=== PATIENT | female | born 1955 | race Caucasian/White ===

== ENCOUNTER → 2023-07-08 13:29 | Outpatient (REF) | payer MEDICARE, OTHER, SELFPAY | LOC: HWRAD 13:29 | PROVIDERS: ATTENDING PHYSICIAN Internal Medicine; FAMILY PHYSICIAN Family Medicine | DX: R91.1 Solitary pulmonary nodule (principal) | CPT/HCPCS: 71250 ==

== ENCOUNTER 2023-07-20 21:57 | Emergency (ER) | payer MEDICARE, OTHER, SELFPAY ==
[2023-07-20 21:57] VITALS: BMI 25.7
[2023-07-20 22:04] VITALS: BP 168/97
--- NOTE | 2023-07-20 22:27 | ED.GENMED ---
History of Present Illness
General
Chief Complaint: Fainting/Passed Out
Source: patient and family
Time Seen by Provider: 07/20/23 22:12
Nursing documentation reviewed up to this point in time: agreed with
Travel History
Have you had any contact with someone who has COVID-19?: No
Do you have any symptoms of coronavirus? Fever > 100 degrees, chills, cough, shortness of breath, sore throat, loss of taste or smell, muscle aches, or headache?: No
History of Present Illness
History of Present Illness:
This a pleasant 67-year-old female that presents with syncopal event. She was sitting down watching television when she got up and passed out. She denies prior chest pain or dizziness. She states that when she fell she hit her face. She
developed epistaxis which seemed to have resolved. She does have bruising under her left eye. She denies any visual acuity changes. She does report mild headache.
Vital signs are stable. Patient not hypoxic
Nursing note reviewed. I agree with nursing documentation up to this point in time.
Home Meds and allergies reviewed.
NUMBER AND COMPLEXITY OF PROBLEMS ADDRESSED AT THE ENCOUNTER
� Chronic conditions affecting care: Hypertension
� Acute Exacerbation and/or Progression of Chronic Illness:
� Differential Diagnosis includes: Vasovagal syncope, orthostasis, dehydration
AMOUNT AND/OR COMPLEXITY OF DATA TO BE REVIEWED AND ANALYZED
I performed an independent evaluation of the following and my interpretation is:
EKG: EKG shows normal sinus rhythm rate of 77 with normal intervals, normal axis. No evidence of acute ischemia present. When compared with previous EKG dated July 31, 2021, similar morphology noted.
CT:
X-rays:
Ultrasound:
Laboratory Studies:
Other:
Review of other/old records:
Clinical information was obtained by an independent historian:
Prescriptions/Medications Considered but not given:
Further testing considered but not performed:
RISK OF COMPLICATIONS AND/OR MORBIDITY OR MORTALITY OF PATIENT MANAGEMENT
Social determinants of health affecting care: Good Social Support
Discussion with other providers:
Escalation of care including admission/observation vs risk of discharge considered:
CRITICAL CARE NOTE:
Total Time (exclusive of procedures):
Update:
Past History
Past History
ED Past Medical History: Other (Migraine headache)
ED Past Surgical History: Orthopedic
Social History
Tobacco: Non-smoker
Alcohol: Other
Drug: None
Personal:
Living: with family
Employment: Retired
Family History
Family History: Other
Review of Systems
Review of Systems
Allergies reviewed?: Yes
Other source history: family
All Other Systems: ROS reviewed and negative except as documented in HPI and ROS
Constitutional: Reports no symptoms
EENT: Reports no symptoms
Respiratory: Reports no symptoms
Cardiac: Reports no symptoms
ABD/GI: Reports no symptoms
: Reports no symptoms
Musculoskeletal: Reports no symptoms
Skin: Reports no symptoms
Neurological: Reports headache; Denies dizzy
Endocrine: Reports no symptoms
Hematologic/Lymphatic: Reports no symptoms
Psychiatric: Reports anxiety
Phy Exam
General Physical Exam
General Presentation: well appearing and mild distress
General age: appears stated age
General Skin: warm and dry
General Habitus: normal
General Mental: alert and anxious
ENT Exam
ENT Exam: EOMI, TM's normal, neck supple and normocephalic
Eye Exam
Eye Exam: PERRL, EOMI and disc sharp
Course
Orders/Labs/Results
Orders:
Orders
07/20/23 22:14
Electrocardiogram (*1) Stat
Reason for Study: Other
Other Reason for Exam: chest pain
Cardiac Monitoring- Treatment ONCE
EKG- Treatment ONCE
07/20/23 22:26
CT Head W/o Iv Contrast Urgent
Comment:
Reason For Exam: syncope , facial injury
07/20/23 22:27
CT Facial Bones W/o Iv Contras Urgent
Comment:
Reason For Exam: syncope , facial injury left eye
07/20/23 22:34
Visual Acuity- Treatment ONCE
07/20/23 23:01
Complete Blood Count/With Diff Urgent
Comprehensive Metabolic Panel Urgent
Magnesium Urgent
PTT Urgent
Prothrombin Time Urgent
TSH Urgent
Troponin I Urgent
07/20/23 23:04
Acetaminophen [Tylenol] 1,000 mg PO NOW STA
07/21/23 00:50
Ambulate Patient-Treatment ONCE
Orthostatic VS- Treatment ONCE
07/21/23 01:33
Amoxicillin 875 mg/Clav 125 mg [Augmentin 875 mg/125 mg] 1 tablet PO NOW STA
Abnormal Lab Results
07/20/23
23:01
Abs Immat Gran (auto) 0.1 H 10^3/uL
(0-0.05)
Absolute Neuts (auto) 8.2 H 10^3/uL
(1.4-6.5)
Neutrophils % 80.0 H %
(42.2-75.2)
Lymphocytes % 11.3 L %
(20.5-51.1)
TSH 9.08 H uIU/ml
(0.47-4.68)
07/20/23 23:01
07/20/23 23:01
Vital Signs
Initial and Last Documented VS:
Initial Vital Signs
Temp Pulse Resp BP Pulse Ox
97.8 F 84 20 168/97 97
07/20/23 22:04 07/20/23 22:04 07/20/23 22:04 07/20/23 22:04 07/20/23 22:04
Last Documented Vital Signs
Temp Pulse Resp BP Pulse Ox
97.8 F 83 20 148/86 97
07/20/23 22:04 07/21/23 01:43 07/21/23 01:43 07/21/23 01:43 07/21/23 01:43
*Critical Care Note
Total Time (30-74mins, 75-104mins- exclusive of procedures): Not Applicable
Update Note
Update Note:
Spoke with Dr. Elmira Sanabria, oral maxillofacial surgery who recommended discharged home and follow-up with RYLIE Rios. Phone number given
ED Attending Note
-
Portions of this chart may have been created with voice recognition software.� Occasional wrong word or��sound alike� substitutions may have occurred due to the inherent limitations of voice recognition software.
Discharge Plan
Departure
Patient Disposition: Home (Routine Discharge)
Date of Disposition: 07/21/23
Time of Disposition: 01:11
Patient with high blood pressure during this ER visit?: Yes
Discharge Problem:
Syncope and collapse, Facial fracture due to fall
Instructions: Syncope (Fainting) (DC), Facial fractures, BLOOD PRESSURE
Prescriptions:
New
amoxicillin-pot clavulanate 875-125 mg tablet
1 tab PO BID Qty: 20 0RF
No Action
atorvastatin [Lipitor] 10 MG tablet
10 mg PO DAILY
levothyroxine [Synthroid] 100 MCG tablet
112 mcg PO DAILY
cyanocobalamin (vitamin B-12) 1,000 MCG/ML solution
1,000 mcg IJ MONTHLY
lisinopril 5 mg Tablet
5 mg PO DAILY
nortriptyline 50 mg Capsule
50 mg PO HS
Referrals:
[facility] [Outside]
Activity Restrictions/Additional Instructions:
Please call for the next available appointment. Bring the images and radiology report.
[facility]uk[facility] clinical nursing instructor [place]
[facility]
Ground Floor, [address] [place] [address]
[address]
[place] [address]
A facility of the [facility] of the [facility]
�[facility]
Office Hours:
Wednesday�8am - 5pmTuesday�8am - 5pmWednday�8am - 5pmThursday�8am - 5pmFriday�8am - 5pm
Call [phone]
Interventions
Interventions:
*Risk Screen - Suicide Last Done: 07/20/23 22:04
*General Assessment Last Done: 07/20/23 22:04
*Neglect/Abuse Screening Last Done: 07/20/23 22:04
ED- Fall Risk Assessment Last Done: 07/20/23 22:04
*ED COVID-19 Vaccine History Last Done: 07/20/23 22:04
*Nursing Disposition Last Done: 07/21/23 01:48
ED- Cardiac Assessment Last Done: 07/20/23 23:16
ED- Neurological Assessment Last Done: 07/20/23 23:16
Discharge Date and Time
Discharge Date/Time: 07/21/23 01:58
Print Language: [id number]
[2023-07-20 22:30] VITALS: BP 153/93
[2023-07-20 22:33] VITALS: BP 153/93
[2023-07-20 23:00] VITALS: BP 141/98
[2023-07-20 23:07] LABS: % Eosinophils 2.1 % (0-6); % Immature Granulocytes 0.5 % (0-0.5); % Lymphocytes 11.3 % (20.5-51.1); % Monocytes 5.1 % (1.7-9.3); Absolute Basophils 0.1 10^3/uL (0-0.2); Absolute Eosinophils 0.2 10^3/uL (0-0.7); Absolute Immature Granulocytes 0.1 10^3/uL (0-0.05); Absolute Lymphocytes 1.2 10^3/uL (1.2-3.4); Absolute Monocytes 0.5 10^3/uL (0.1-0.6); Absolute Neutrophils 8.2 10^3/uL (1.4-6.5); Hematocrit 39.6 % (37.0-47.0); Hemoglobin 13.5 g/dL (12.0-16.0); Mean Corp Hgb Conc. 34.1 g/dL (33.0-37.0); Mean Corpuscular Hgb 30.9 pg (27.0-31.0); Mean Corpuscular Volume 90.6 fL (81.0-99.0); Mean Platelet Volume 9.7 fL (7.4-10.4); Nucleated Red Blood Cells % 0 %; Platelet Count 326 10^3/uL (130-400); Red Blood Cell Count 4.37 10^6/uL (4.20-5.40); Red Cell Dist. Width 12.1 % (11.5-14.5); White Blood Cell Count 10.3 10^3/uL (4.8-10.8)
[2023-07-20] MEDS: TYLENOL 1000 MG PO (23:08)
[2023-07-20 23:17] LABS: INR 0.96; PT 12.6 Sec (11.4-14.6)
[2023-07-20 23:18] LABS: APTT 28.8 Sec (23.4-35.0)
[2023-07-20 23:27] LABS: ALT (SGPT) 26 U/L (0-35); AST (SGOT) 30 U/L (14-36); Albumin 4.6 g/dl (3.5-5.0); Alkaline Phosphatase 76 U/L (38-126); Blood Urea Nitrogen 12 mg/dl (7-17); Carbon Dioxide 28 mmol/L (22-30); Chloride 106 mmol/L (98-107); Estimated Creatinine Clearance 80 ml/min; Glucose 97 mg/dl (70-99); Magnesium 2.1 mg/dl (1.6-2.3); Potassium 4.5 mmol/L (3.5-5.1); Sodium 136 mmol/L (135-145); Total Bilirubin 0.3 mg/dl (0.2-1.3); Total Protein 7.4 g/dl (6.3-8.2); eGFR > 60.00
[2023-07-20 23:31] LABS: Troponin I < 0.012 ng/ml
[2023-07-20 23:57] LABS: TSH 9.08 uIU/ml (0.47-4.68)
[2023-07-21] VITALS: BP 149/90
[2023-07-21 00:50] VITALS: BP 143/102; BP 143/94; BP 159/123; PULSE 85; PULSE 86; PULSE 98
[2023-07-21 01:00] VITALS: BP 143/94
[2023-07-21 01:03] VITALS: BP 143/102
[2023-07-21 01:05] VITALS: BP 159/123
[2023-07-21] MEDS: AUGMENTIN 875 MG/125 MG 1 TABLET PO (01:42)
[2023-07-21 01:43] VITALS: BP 148/86
== END 2023-07-21 01:58 | disposition home or self-care (01) ==
LOC: EMR 21:57
PROVIDERS: EMERGENCY PHYSICIAN Student in an Organized Health Care Education/Training Program; FAMILY PHYSICIAN Family Medicine
DX: S02.842A Fracture of lateral orbital wall, left side, initial encounter for closed fracture (principal); W19.XXXA Unspecified fall, initial encounter; R55 Syncope and collapse; I10 Essential (primary) hypertension
CPT/HCPCS: 99284; 70450; 70486; 80053; 83735; 84443; 84484; 85025; 85610; 85730; 93005

== ENCOUNTER → 2023-09-14 15:59 | Outpatient (REF) | payer MEDICARE, OTHER, SELFPAY | LOC: HWRCS 15:59 | PROVIDERS: ATTENDING PHYSICIAN Internal Medicine Cardiovascular Disease; FAMILY PHYSICIAN Family Medicine | DX: R55 Syncope and collapse (principal) | CPT/HCPCS: 93306 ==

== ENCOUNTER → 2023-09-16 10:44 | Outpatient (REF) | payer MEDICARE, OTHER, SELFPAY | LOC: RCS 10:44 | PROVIDERS: ATTENDING PHYSICIAN Internal Medicine Cardiovascular Disease; FAMILY PHYSICIAN Family Medicine | DX: R06.02 Shortness of breath (principal) | CPT/HCPCS: 93017; 93350 ==

== ENCOUNTER → 2024-07-12 12:40 | Outpatient (REF) | payer MEDICARE, OTHER, SELFPAY | LOC: HWRAD 12:40 | PROVIDERS: ATTENDING PHYSICIAN Internal Medicine; FAMILY PHYSICIAN Family Medicine | DX: R91.1 Solitary pulmonary nodule (principal) | CPT/HCPCS: 71250 ==

== ENCOUNTER → 2025-02-09 07:41 | Outpatient (REF) | payer MEDICARE, OTHER, SELFPAY | LOC: HWWDC 07:41 | PROVIDERS: ATTENDING PHYSICIAN Family Medicine | DX: Z12.31 Encounter for screening mammogram for malignant neoplasm of breast (principal) | CPT/HCPCS: 77063; 77067 ==